=== PATIENT | male | born 1970 | race African-American/Black ===

== ENCOUNTER 2021-07-02 09:33 | Inpatient (IN) | payer MEDICAID ==
[2021-07-01 10:54] LABS: BASOPHILS % (AUTO) 0.3 % (0.0-2.0); EOSINOPHILS % (AUTO) 5.1 % (1.0-6.0); HEMATOCRIT 42.3 % (41-53); HEMOGLOBIN 13.7 g/dL (13.5-17.5); LYMPHOCYTES # (AUTO) 2.2 K/uL (2.0-11.5); LYMPHOCYTES % (AUTO) 39.1 % (21.0-34.0); MEAN CORPUSCULAR HEMOGLOBIN 28.2 pg (31.0-37.0); MEAN CORPUSCULAR HGB CONC 32.3 G/dL (29.0-37.0); MEAN CORPUSCULAR VOLUME 87 fL (95-121); MONOCYTES # (AUTO) 0.3 K/uL (0.1-1.0); MONOCYTES % (AUTO) 4.6 % (2.0-9.0); NEUTROPHILS # (AUTO) 2.9 K/uL (5.0-21.0); NEUTROPHILS % (AUTO) 50.9 % (53.0-62.0); PLATELET COUNT (AUTO) 182 K/uL (150-450); RED BLOOD CELL COUNT(AUTO) 4.84 MIL/uL (4.00-6.60); RED CELL DISTRIBUTION WIDTH 13.4 % (11.5-14.5)
[2021-07-01 11:07] LABS: PROTHROMBIN TIME 10.2 SEC (9.4-11.6)
[2021-07-01 11:17] LABS: ANION GAP 5 mmol/L (8-16); CALCIUM, TOTAL 8.3 mg/dL (8.8-10.5); CARBON DIOXIDE 29 mmol/L (22-29); CHLORIDE 110 mmol/L (98-107); CREATININE 1.11 mg/dL (0.60-1.30); GLOMERULAR FILTR. RATE CALC > 60 mL/min; GLUCOSE,RANDOM 102 mg/dL (70-110); POTASSIUM 4.4 mmol/L (3.5-5.1); SODIUM SERUM 144 mmol/L (136-145); UREA NITROGEN, BLOOD 11 mg/dL (7-18)
[2021-07-01 15:11] LABS: COVID AG,FIA SOURCE NASOPHARYNGEAL
[~2021-07-02] VITALS: Ht 170.2 cm; Wt 104.5 kg
[~2021-07-02 09:33] MED LIST: CeFAZolin 2 GM/DEXTROSE 50 ML IV ONE; RINGERS SOLUTION,LACTATED 1,000 ML IV ONE
[2021-07-02] MEDS ORDERED: ONDANSETRON HCL 4 MG/2 ML VIAL IVP ONE ×2 (09:34)
[2021-07-02] MEDS ORDERED: GLYCOPYRROLATE 0.2 MG/ML VIAL IM ONE (09:34)
[2021-07-02] MEDS ORDERED: MIDAZOLAM HCL 2 MG/2 ML VIAL IVP ONE (09:34)
[2021-07-02] MEDS ORDERED: KETAMINE HCL 50 MG/ML 10 ML VIAL IVP ONE (09:34)
[2021-07-02] MEDS ORDERED: LIDOCAINE/PF 2% 5 ML SYRINGE IVP ONE (09:34)
[2021-07-02] MEDS ORDERED: CefoTEtan DISODIUM 1 GM/VIAL IVP ONE (09:34)
[2021-07-02] MEDS ORDERED: NEOSTIGMINE METHYLSULFATE 1 MG/ML 10 ML VIAL IVP ONE (09:34)
[2021-07-02] MEDS ORDERED: TRANEXAMIC ACID 1,000 MG/10 ML VIAL IVP ONE (09:34)
[2021-07-02] MEDS ORDERED: DEXAMETHASONE SOD PHOS 4 MG/ML VIAL IVP ONE ×2 (09:34)
[2021-07-02] MEDS ORDERED: FentaNYL CITRATE PF 100 MCG/2 ML VIAL IVP ONE (09:34)
[2021-07-02] MEDS ORDERED: ROCURONIUM BROMIDE 10 MG/ML 5 ML VIAL IVP ONE (09:34)
[2021-07-02] MEDS ORDERED: LIDOCAINE/PF 2% 5 ML VIAL IM ONE (09:34)
[2021-07-02] MEDS ORDERED: PROPOFOL 1% 20 ML VIAL IVP ONE ×2 (09:34)
[2021-07-02] MEDS ORDERED: PROPOFOL 1% ISO-OSM 1000 MG/100 ML BOTTLE IV ONE (09:34)
[2021-07-02] MEDS ORDERED: RINGERS SOLUTION,LACTATED 1,000 ML IV ONE ×2 (10:00→14:41)
[2021-07-02] MEDS ORDERED: PROPOFOL 1000 MG/ISO-OSM 100 ML ONE ×2 (10:11→13:31)
[2021-07-02] MEDS ORDERED: ACETAMINOPHEN 1000 MG/ISO-OSM 100 ML IV ONE (10:11)
[2021-07-02] MEDS ORDERED: GABA-1181 PO (10:39)
[2021-07-02] MEDS ORDERED: ATOR20TA65 PO (10:39)
[2021-07-02] MEDS ORDERED: QUET200T30 PO (10:39)
[2021-07-02] MEDS ORDERED: LEVE10006 PO (10:39)
[2021-07-02] MEDS ORDERED: DULO60CA98 PO (10:39)
[2021-07-02] MEDS ORDERED: AMLO10TA55 PO (10:39)
[2021-07-02] MEDS ORDERED: OXYC-618 PO (10:40)
[2021-07-02] MEDS ORDERED: BACITRACIN 50,000 UNITS/VIAL ONE (11:05)
[2021-07-02] MEDS ORDERED: SODIUM CHLORIDE 0.9% 10 ML ONE (11:05)
[2021-07-02] MEDS ORDERED: BUPIVACAINE HCL/PF 0.5% 30 ML VIAL ONE (11:05)
[2021-07-02] MEDS ORDERED: BUPIVACAINE HCL/PF 0.25% 30 ML VIAL ONE (11:11)
[2021-07-02] MEDS ORDERED: OxyCODONE HCL/ACETAMINOPHEN 5-325 MG TABLET PO PRN (11:15)
[2021-07-02] MEDS ORDERED: DEXAMETHASONE SOD PHOS 4 MG/ML VIAL IVP PRN (11:15)
[2021-07-02] MEDS ORDERED: DIAZEPAM 5 MG TABLET PO PRN (11:15)
[2021-07-02] MEDS ORDERED: DiphenhydrAMINE HCL 50 MG/ML VIAL IVP PRN (11:15)
[2021-07-02] MEDS ORDERED: ZOLPIDEM TARTRATE 10 MG TABLET PO PRN (11:15)
[2021-07-02] MEDS ORDERED: BACITRACIN 28 GM OINTMENT TP PRN (11:15)
[2021-07-02] MEDS ORDERED: ONDANSETRON HCL 4 MG/2 ML VIAL IVP PRN (11:15)
[2021-07-02] MEDS ORDERED: BENZOCAINE/MENTHOL LOZENGE PO PRN (11:15)
[2021-07-02] MEDS ORDERED: BUPIVACAINE LIPOSOME/PF 1.3%-13.3MG/ML SUSPENSION 20 ML VIAL INJ ONE (11:15)
[2021-07-02] MEDS: ETHYL ALCOHOL 62% ANTISEPTIC NASAL INHALANT 0.6 ML AMPUL NASAL SCH ×2 (11:45→20:19)
[2021-07-02] MEDS ORDERED: THROMBIN, BOVINE 20000 UNITS/VIAL POWDER TP ONE (12:08)
[2021-07-02] MEDS ORDERED: HYDROmorphone 2 MG/ML VIAL IVP PRN (12:15)
[2021-07-02] MEDS ORDERED: FentaNYL CITRATE PF 100 MCG/2 ML VIAL IVP PRN (12:15)
[2021-07-02] MEDS ORDERED: SODIUM CHLORIDE 0.9% 0 ML ONE (14:00)
[2021-07-02] MEDS ORDERED: TRANEXAMIC ACID 1,000 MG/10 ML VIAL ONE (14:00)
[2021-07-02] MEDS ORDERED: VANCOMYCIN HCL 1 GM/VIAL ONE (15:40)
[2021-07-02] MEDS ORDERED: HYDROmorphone 2 MG/ML VIAL ONE (17:31)
[2021-07-02] MEDS: HYDROmorphone 2 MG/ML VIAL IVP PRN (17:35)
[2021-07-02] MEDS ORDERED: SODIUM CHLORIDE 0.9% 250 ML IV ONE (17:57)
[2021-07-02] MEDS: ACETAMINOPHEN 1000 MG/ISO-OSM 100 ML IV SCH ×2 (18:11→23:51)
[2021-07-02 18:15] VITALS: BP 139/69
[2021-07-02] MEDS: CeFAZolin 1 GM/DEXTROSE 50 ML IV SCH (18:46)
[2021-07-02] MEDS ORDERED: OXYGEN THERAPY IH SCH (20:00)
[2021-07-02] MEDS: OXYGEN THERAPY IH SCH (20:20)
[2021-07-02] MEDS: QUEtiapine FUMARATE 200 MG TABLET PO SCH (20:30)
[2021-07-02] MEDS: GABAPENTIN 300 MG CAPSULE PO SCH (20:30)
[2021-07-02] MEDS: LevETIRAcetam 500 MG TABLET PO SCH (20:33)
[2021-07-02 20:40] VITALS: BP 121/71
[2021-07-02] MEDS ORDERED: DOCUSATE SODIUM 100 MG CAPSULE PO PRN (20:45)
[2021-07-02] MEDS: OxyCODONE HCL/ACETAMINOPHEN 10-325 MG TABLET PO PRN (22:46)
[2021-07-02 23:00] VITALS: BP 131/67
[2021-07-03] MEDS ORDERED: SODIUM CHLORIDE 0.9% 500 ML IV ONE (01:09)
[2021-07-03] MEDS: CeFAZolin 1 GM/DEXTROSE 50 ML IV SCH (01:14)
[2021-07-03 03:52] VITALS: BP 137/67
[2021-07-03] MEDS: ACETAMINOPHEN 1000 MG/ISO-OSM 100 ML IV SCH ×2 (06:11→18:36)
[2021-07-03 06:17] LABS: BASOPHILS % (AUTO) 0.1 % (0.0-2.0); EOSINOPHILS % (AUTO) 0 % (1.0-6.0); HEMATOCRIT 38.2 % (41-53); HEMOGLOBIN 12.2 g/dL (13.5-17.5); LYMPHOCYTES # (AUTO) 1.2 K/uL (1.0-4.8); LYMPHOCYTES % (AUTO) 9.4 % (22.0-44.0); MEAN CORPUSCULAR HEMOGLOBIN 27.9 pg (26.0-34.0); MEAN CORPUSCULAR HGB CONC 31.9 G/dL (31.0-37.0); MEAN CORPUSCULAR VOLUME 88 fL (80-100); MONOCYTES # (AUTO) 0.7 K/uL (0.1-1.0); MONOCYTES % (AUTO) 5.9 % (2.0-9.0); NEUTROPHILS # (AUTO) 10.5 K/uL (1.8-7.7); NEUTROPHILS % (AUTO) 84.6 % (40.0-70.0); PLATELET COUNT (AUTO) 181 K/uL (150-450); RED BLOOD CELL COUNT(AUTO) 4.36 MIL/uL (4.50-5.90); RED CELL DISTRIBUTION WIDTH 13.4 % (11.5-14.5)
[2021-07-03 06:44] LABS: ANION GAP 8 mmol/L (8-16); CALCIUM, TOTAL 7.9 mg/dL (8.8-10.5); CARBON DIOXIDE 26 mmol/L (22-29); CHLORIDE 106 mmol/L (98-107); CREATININE 1.21 mg/dL (0.60-1.30); GLOMERULAR FILTR. RATE CALC > 60 mL/min (>60); GLUCOSE,RANDOM 135 mg/dL (70-110); POTASSIUM 4.7 mmol/L (3.5-5.1); SODIUM SERUM 140 mmol/L (136-145); UREA NITROGEN, BLOOD 13 mg/dL (7-18)
[2021-07-03 08:21] VITALS: BP 105/58
[2021-07-03] MEDS: GABAPENTIN 300 MG CAPSULE PO SCH ×3 (08:57→20:06)
[2021-07-03] MEDS: LevETIRAcetam 500 MG TABLET PO SCH ×2 (08:57→20:06)
[2021-07-03] MEDS: AmLODIPine BESYLATE 10 MG TABLET PO SCH (08:58)
[2021-07-03] MEDS: DULoxetine HCL 60 MG CAPSULE PO SCH (08:58)
[2021-07-03] MEDS: ATORVASTATIN CALCIUM 20 MG TABLET PO SCH (08:58)
[2021-07-03] MEDS: ETHYL ALCOHOL 62% ANTISEPTIC NASAL INHALANT 0.6 ML AMPUL NASAL SCH ×2 (09:00→20:06)
[2021-07-03] MEDS: OXYGEN THERAPY IH SCH ×2 (09:46→20:00)
[2021-07-03] MEDS: HYDROmorphone 2 MG/ML VIAL IVP PRN ×3 (11:53→20:06)
[2021-07-03 15:55] VITALS: BP 131/82
[2021-07-03 19:55] VITALS: BP 133/76
[2021-07-03] MEDS: QUEtiapine FUMARATE 200 MG TABLET PO SCH (20:06)
[2021-07-03 21:36] LABS: APPEARANCE,URINE CLEAR (CLEAR); BILIRUBIN,URINE NEGATIVE (NEGATIVE); GLUCOSE, URINE (UA) NEGATIVE (NEGATIVE); KETONES,URINE NEGATIVE (NEGATIVE); LEUKOCYTE ESTERASE ,URINE NEGATIVE (NEGATIVE); NITRATE,URINE NEGATIVE (NEGATIVE); OCCULT BLOOD,URINE NEGATIVE (NEGATIVE); PH,URINE 6.5 (5.0-8.0); PROTEIN,URINE NEGATIVE (NEGATIVE); UROBILINOGEN,URINE 0.2 mg/dL (<=1.0)
[2021-07-03 21:44] LABS: BACTERIA,URINE None Seen /HPF (None Seen); RBC,URINE None Seen /HPF (0-2); SQUAMOUS EPITHELIAL CELL,UR None Seen /LPF (None Seen); WBC,URINE None Seen /HPF (0-5)
[2021-07-04 00:08] VITALS: BP 133/74
[2021-07-04] MEDS: HYDROmorphone 2 MG/ML VIAL IVP PRN ×3 (03:00→08:10)
[2021-07-04 05:37] VITALS: BP 116/68
[2021-07-04] MEDS: OXYGEN THERAPY IH SCH ×2 (08:00→20:13)
[2021-07-04] MEDS: ATORVASTATIN CALCIUM 20 MG TABLET PO SCH (08:09)
[2021-07-04] MEDS: GABAPENTIN 300 MG CAPSULE PO SCH ×3 (08:09→20:10)
[2021-07-04] MEDS: DULoxetine HCL 60 MG CAPSULE PO SCH (08:09)
[2021-07-04] MEDS: LevETIRAcetam 500 MG TABLET PO SCH ×2 (08:10→20:10)
[2021-07-04] MEDS: ETHYL ALCOHOL 62% ANTISEPTIC NASAL INHALANT 0.6 ML AMPUL NASAL SCH ×2 (08:10→20:13)
[2021-07-04] MEDS: AmLODIPine BESYLATE 10 MG TABLET PO SCH (08:10)
[2021-07-04 08:17] VITALS: BP 123/70
[2021-07-04] MEDS: OxyCODONE HCL/ACETAMINOPHEN 10-325 MG TABLET PO PRN ×2 (15:31→20:09)
[2021-07-04 16:02] VITALS: BP 159/73
[2021-07-04] MEDS: QUEtiapine FUMARATE 200 MG TABLET PO SCH (20:10)
[2021-07-04 20:21] VITALS: BP 123/63
[2021-07-05 00:01] VITALS: BP 142/84
[2021-07-05] MEDS: HYDROmorphone 2 MG/ML VIAL IVP PRN (00:50)
[2021-07-05 01:16] LABS: GLUCOMETER DEV NAME(LOC) 6S.1; GLUCOSE,POINT OF CARE 142 MG/DL (70-110)
[2021-07-05 04:12] VITALS: BP 117/77
[2021-07-05] MEDS: OXYGEN THERAPY IH SCH ×2 (08:00→20:09)
[2021-07-05] MEDS ORDERED: SODIUM CHLORIDE 0.9% 100 ML ONE (08:18)
[2021-07-05] MEDS ORDERED: IOHEXOL 350 MG/ML 150 ML VIAL ONE (08:18)
[2021-07-05 08:25] VITALS: BP 119/70
[2021-07-05] MEDS: GABAPENTIN 300 MG CAPSULE PO SCH ×3 (09:58→20:07)
[2021-07-05] MEDS: ETHYL ALCOHOL 62% ANTISEPTIC NASAL INHALANT 0.6 ML AMPUL NASAL SCH ×2 (09:58→20:07)
[2021-07-05] MEDS: LevETIRAcetam 500 MG TABLET PO SCH ×2 (09:59→20:07)
[2021-07-05] MEDS: AmLODIPine BESYLATE 10 MG TABLET PO SCH (09:59)
[2021-07-05] MEDS: ATORVASTATIN CALCIUM 20 MG TABLET PO SCH (09:59)
[2021-07-05] MEDS: DULoxetine HCL 60 MG CAPSULE PO SCH (09:59)
[2021-07-05] MEDS ORDERED: SODIUM CHLORIDE 0.9% 1,000 ML IV ONE (12:00)
[2021-07-05] MEDS: OxyCODONE HCL/ACETAMINOPHEN 10-325 MG TABLET PO PRN (12:31)
[2021-07-05 15:37] VITALS: BP 123/69
[2021-07-05] MEDS: QUEtiapine FUMARATE 200 MG TABLET PO SCH (20:07)
[2021-07-05 20:31] VITALS: BP 141/89
[2021-07-06 00:13] VITALS: BP 134/70
[2021-07-06] MEDS: OxyCODONE HCL/ACETAMINOPHEN 5-325 MG TABLET PO PRN ×2 (01:44→08:44)
[2021-07-06 05:55] VITALS: BP 100/54
[2021-07-06 08:27] VITALS: BP 128/73
[2021-07-06] MEDS: GABAPENTIN 300 MG CAPSULE PO SCH ×2 (08:42→16:00)
[2021-07-06] MEDS: LevETIRAcetam 500 MG TABLET PO SCH (08:42)
[2021-07-06] MEDS: AmLODIPine BESYLATE 10 MG TABLET PO SCH (08:42)
[2021-07-06] MEDS: DULoxetine HCL 60 MG CAPSULE PO SCH (08:43)
[2021-07-06] MEDS: ATORVASTATIN CALCIUM 20 MG TABLET PO SCH (08:43)
[2021-07-06] MEDS: ETHYL ALCOHOL 62% ANTISEPTIC NASAL INHALANT 0.6 ML AMPUL NASAL SCH (09:00)
[2021-07-06] MEDS ORDERED: MAGNESIUM HYDROXIDE SUSPENSION 30 ML UDCUP PO ONE (10:30)
[2021-07-06] MEDS ORDERED: MINERAL OIL 133 ML ENEMA PR ONE (15:15)
[2021-07-06] MEDS ORDERED: BACI28OI28 TP (15:32)
[2021-07-06] MEDS ORDERED: BISA-151 PO (15:33)
[2021-07-06 16:17] VITALS: BP 145/87
[2021-07-06] MEDS ORDERED: LACTULOSE 20 GM/30 ML SOLUTION UDCUP PO ONE (17:00)
[2021-07-06] MEDS: OxyCODONE HCL/ACETAMINOPHEN 10-325 MG TABLET PO PRN (17:06)
== END 2021-07-06 17:25 | disposition home or self-care (01) | DRG 304 ==
LOC: OBSVTOIN 09:33 → INTOOBSV 09:33 → 6S 09:33 → 6N 11:50 → 6S 07-03 20:50
PROVIDERS: ADMIT Neurological Surgery; ATTEND Neurological Surgery
PROC: 0QP004Z Removal of Internal Fixation Device from Lumbar Vertebra, Open Approach (ICD-10-PCS; 2021-07-02)
PROC: 0SB20ZZ Excision of Lumbar Vertebral Disc, Open Approach (ICD-10-PCS; 2021-07-02)
PROC: 4A11X4G Monitoring of Peripheral Nervous Electrical Activity, Intraoperative, External Approach (ICD-10-PCS; 2021-07-02)
PROC: 0SG0071 Fusion of Lumbar Vertebral Joint with Autologous Tissue Substitute, Posterior Approach, Posterior Column, Open Approach (ICD-10-PCS; principal; 2021-07-02 11:30)
DX: M54.16 Radiculopathy, lumbar region (principal); M62.82 Rhabdomyolysis; I10 Essential (primary) hypertension; R00.0 Tachycardia, unspecified; G40.909 Epilepsy, unspecified, not intractable, without status epilepticus; E78.5 Hyperlipidemia, unspecified; K59.00 Constipation, unspecified; Z20.822 Contact with and (suspected) exposure to COVID-19; E66.9 Obesity, unspecified; D72.829 Elevated white blood cell count, unspecified; Z68.36 Body mass index [BMI] 36.0-36.9, adult; Z79.899 Other long term (current) drug therapy
CPT/HCPCS: 71046; 71275; 72100; 72131; 80048; 81001; 82550; 82962; 84484; 85025; 85379; 85610; 85730; 87081; 88300; 93005; 96361; 96365; 96366; 96375; 96376; 97110; 97116; 97162; 97167; 97530; 97535; 99219; C9290; J0131; J0690; J1100; J1170; J2250; J2405; J2704; J3010; J3370; J3490; J7030; J7040; J7050; J7120; Q9967; 36415-L1; 36415-TC; 93366; C1716; Z7610